=== PATIENT | male | born 1935 | race Caucasian/White ===

== ENCOUNTER 2021-10-21 11:31 | Day surgery (SDC) | payer OTHER ==
[~2021-10-21] VITALS: Ht 185.4 cm; Wt 92.1 kg
[~2021-10-21 11:31] MED LIST: CEFAZOLIN SOD 2 GM in D5W 50 ML IV ONE
[2021-10-21] MEDS ORDERED: HYDROmorphone 1 MG/ML INJ. CARTRIDGE IVP PRN (15:30)
[2021-10-21] MEDS ORDERED: KETOROLAC TROMETHAMINE 30 MG VIAL IVP PRN (15:30)
[2021-10-21] MEDS ORDERED: dilTIAZem HCL IVP 5 MG/ML VIAL IVP PRN (15:30)
[2021-10-21] MEDS ORDERED: ONDANSETRON HCL 4 MG/2 ML VIAL IVP PRN (15:30)
[2021-10-21] MEDS ORDERED: IBUPROFEN 400 MG TABLET PO ONE (16:00)
[2021-10-21] MEDS ORDERED: SUCCINYLCHOLINE CHLORIDE 20 MG/ML(QUELICIN) ONE (17:15)
[2021-10-21] MEDS ORDERED: BUPIVACAINE /PF 0.25% 30 ML VIAL INJ ONE (17:15)
[2021-10-21] MEDS ORDERED: PROPOFOL 200MG/ 20ML VIAL (DIPRIVAN) IV ONE (17:15)
[2021-10-21] MEDS ORDERED: SEVOFLURANE 15 MIN GAS INH ONE (17:15)
[2021-10-21] MEDS ORDERED: ROCURONIUM BROMIDE 10 MG/ML (ZEMURON) ONE (17:15)
[2021-10-21] MEDS ORDERED: LR 1,000 ML IV.SOLN IV ONE (17:15)
[2021-10-21] MEDS ORDERED: KETOROLAC TROMETHAMINE 30 MG VIAL ONE (17:15)
[2021-10-21] MEDS ORDERED: fentaNYL CITRATE/PF 100 MCG/2 ML AMP ONE (17:15)
[2021-10-21] MEDS ORDERED: ONDANSETRON HCL 4 MG/2 ML VIAL ONE (17:15)
[2021-10-21 20:46] VITALS: BP_SYST 138
== END 2021-10-21 20:10 | disposition home or self-care (01) ==
LOC: SDS 11:31 → SMU 11:34 → SDS 20:10
PROVIDERS: ATTEND Surgery
DX: K40.30 Unilateral inguinal hernia, with obstruction, without gangrene, not specified as recurrent (principal); K40.90 Unilateral inguinal hernia, without obstruction or gangrene, not specified as recurrent; I10 Essential (primary) hypertension; E78.5 Hyperlipidemia, unspecified; E03.9 Hypothyroidism, unspecified; Z20.822 Contact with and (suspected) exposure to COVID-19; Z79.899 Other long term (current) drug therapy
CPT/HCPCS: 36415; 49650; U0003; C1781; J3490; J0690; J1885; J2405; J2704; J0330; J3010; J7060; J7120; C1727; S2900

== ENCOUNTER 2023-10-08 21:25 | Emergency (ER) | payer OTHER ==
[~2023-10-08] VITALS: Ht 180.3 cm; Wt 89.4 kg
[2023-10-08 21:36] VITALS: BP_SYST 154; PULSE 89; RESP 18; TEMP 98.1; O2SAT 97
[2023-10-08 23:55] VITALS: BP_SYST 137; PULSE 81; RESP 15; TEMP 97.6; O2SAT 94
== END 2023-10-08 23:55 | disposition home or self-care (01) ==
LOC: SED 21:25
DX: S02.2XXA Fracture of nasal bones, initial encounter for closed fracture (principal); S09.90XA Unspecified injury of head, initial encounter; Z88.5 Allergy status to narcotic agent; W18.39XA Other fall on same level, initial encounter; Y93.89 Activity, other specified; Y92.89 Other specified places as the place of occurrence of the external cause; Y99.8 Other external cause status
CPT/HCPCS: 70450-TC; 70486; 72125-TC; 99284